=== PATIENT | male | born 2000 | race Caucasian/White ===

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

== ENCOUNTER 2021-10-28 09:12 | Emergency (ER) | payer OTHER, SELFPAY ==
[2021-10-28] VITALS (9 sets, daily range): BP systolic 106–154; BP diastolic 58–94; PULSE 73–102; RESP 14–19; TEMP 36.9; O2SAT 98–100; BMI 32.1
--- NOTE | 2021-10-28 09:23 | DI.US.S_ITS ---
PROCEDURE: US ABDOMEN LIMITED INDICATIONS: RUQ PAIN TECHNIQUE: Real-time scanning was performed of the abdominal and retroperitoneal organs, with image documentation. COMPARISON: None. FINDINGS: Liver: Liver is normal in size and homogeneous in echotexture. Gallbladder: Gallbladder is normal in sonographic appearance without gallstones, gallbladder wall thickening, pericholecystic fluid, or abnormal sonographic Hernandez's. Biliary ducts: Intrahepatic bile ducts are non-dilated. Extrahepatic bile duct caliber measures 6 mm. Normal is 6-7 mm or less in diameter, or 10 mm or less post-cholecystectomy. Pancreas: Visualized portions of the pancreas are sonographically normal. Miscellaneous: No free abdominal fluid. IMPRESSION: Normal right upper quadrant abdominal ultrasound. No acute sonographic abnormalities. No evidence for cholelithiasis or acute cholecystitis. Dictated by: Bruno Good M.D. on 10/28/2021 at 11:25 Approved by: Bruno Good M.D. on 10/28/2021 at 11:26
--- NOTE | 2021-10-28 09:24 | ED.ABDPAIN ---
HPI - Abdominal Pain General Chief Complaint: Abdominal Pain Stated Complaint: Yellowing of eyes/n&v/mid abd pain x4 days Time Seen by Provider: 10/28/21 09:23 History of Present Illness HPI narrative: Patient is a 21-year-old male with no past medical history presenting with epigastric pain. He says it started about 5 days ago. He has had some nausea 1 or 2 episodes of vomiting pain comes and goes but does not have any pain now. He has not had any fever or chills. Pain does not radiate or move. He denies any chest pain or shortness of breath. He states that he does binge drink he can go numerous speaks with out anything half and then drinks hard liquor for about 1 week. He said he recently was on a binge. He says takes 5 oz and then goes to bed. He started noticing some yellowing of the eyes over the last few days. No abdominal distension Related Data Home Medications Medication Instructions Recorded Confirmed No Known Home Medications 10/28/21 10/28/21 Allergies Allergy/AdvReac Type Severity Reaction Status Date / Time No Known Drug Allergies Allergy Verified 10/28/21 09:22 Review of Systems Review of Systems Narrative: GENERAL: Denies chills, fatigue, malaise, fever, sweats, travel HEENT: Denies sinus pain, ear pain, sore throat, difficulty swallowing, neck pain RESPIRATORY: Denies dyspnea, cough, wheezing, hemoptysis, sputum. CARDIOVASCULAR: Denies chest pain, palpitations, orthopnea, edema GASTROINTESTINAL: see HPI : Denies dysuria, frequency, incontinence, hematuria, urinary retention, flank pain. MUSCULOSKELETAL: Denies weakness, joint pain, or bony pain SKIN: No rash, no erythema, no pruritus NEUROLOGIC: Denies weakness, dizziness, headache, numbness, change in speech, confusion PSYCHIATRIC: No concerning psychosocial issues. 12 point review of systems is negative except for those stated above and HPI Patient History Alcohol type: hard liquor Exam Initial Vital Signs Initial Vital Signs: Vital Signs Temperature 98.5 F 10/28/21 09:18 Pulse Rate 102 H 10/28/21 09:18 Respiratory Rate 14 10/28/21 09:18 Blood Pressure 154/94 H 10/28/21 09:18 Pulse Oximetry 100 10/28/21 09:18 GENERAL: Alert 21-year-old male and in no acute distress. HEENT: Head atraumatic,EOMI, pupils reactive, very mild icterus, face symmetric, moist mucous membranes CARDIOVASCULAR: Regular rate and rhythm without murmurs, rubs or gallops. RESPIRATORY: Breath sounds equal bilaterally, no wheezes rales or rhonchi. ABDOMEN: Soft, nontender. Normoactive bowel sounds all 4 quadrants. No guarding or rebound. : No CVA tenderness EXTREMITIES: Normal range of motion, no clubbing or edema. Neurovascularly intact NEUROLOGICAL: Alert and oriented x4. SKIN: Warm, dry, no laceration, no petechiae, no rashes or lesions. Minimal jaundice Course Orders Ordered: ED Orders 10/28/21 09:23 US abdomen limited Stat 10/28/21 09:30 Complete Blood Count AUTO DIFF Stat Comprehensive Metabolic Panel Stat Lipase Stat PT [Prothrombin Time INR] Stat PTT [Partial Thromboplastin Time] Stat Vital Signs Vital signs: Vital Signs - 8 hr 10/28/21 11:00 10/28/21 11:30 10/28/21 12:00 Pulse Rate 77 73 78 Respiratory Rate 18 17 16 Blood Pressure 106/58 L 114/66 115/60 Pulse Oximetry 100 98 99 MDM - Abdominal Pain Lab Data Result diagrams: 10/28/21 09:30 10/28/21 09:30 Labs: Lab Results 10/28/21 10/28/21 10/28/21 Range/Units 09:30 09:30 09:30 WBC 4.2 L (4.5-11.0) X10^3/uL RBC 5.48 (4.5-5.9) X10^6/uL Hgb 16.3 (13.5-17.5) g/dL Hct 47.6 (41-53) % MCV 86.8 (80-100) fL MCH 29.8 (26-34) PG MCHC 34.3 (30-36) % RDW 13.5 (11.6-14.8) % Plt Count 194 (150-400) X10^3/uL Neut % (Auto) 63.8 (50-75) % Lymph % (Auto) 24.5 L (25-40) % [place] % (Auto) 9.4 (3-14) % Eos % (Auto) 1.8 L (2-4) % Baso % (Auto) 0.5 (0-2) % Neut # (Auto) 2700 (7123-4207) /uL Lymph # (Auto) 1000 L (8403-8589) /uL [place] # (Auto) 400 (0-900) /uL Eos # (Auto) 100 (0-450) /uL Baso # (Auto) 0 (0-100) /uL PT 12.2 (10.1-12.7) SECONDS INR 1.1 (0.9-1.3) APTT 38 H (26.4-36.2) SECONDS Sodium 140 (137-145) mmol/L Potassium 3.8 (3.4-5.1) mmol/L Chloride 102 (98-107) mmol/L Carbon Dioxide 28 (22-32) mmol/L BUN 8 L (9-20) mg/dL Creatinine 0.84 (0.66-1.25) mg/dL Estimated GFR > 60.0 (>60) mL/min BUN/Creatinine Ratio 9.5 (6-22) Glucose 101 H (70-100) mg/dL Calcium 9.9 (8.4-10.2) mg/dL Total Bilirubin 5.9 H (0.2-1.3) mg/dL AST 150 H (17-59) IU/L ALT 426 H (<50) IU/L Alkaline Phosphatase 168 H (38-126) U/L Total Protein 8.6 H (6.3-8.2) g/dL Albumin 5.2 H (3.5-5.0) g/dL Globulin 3.4 (1.7-4.1) g/dL Albumin/Globulin Ratio 1.5 (1.0-2.8) Lipase 104 (23-300) U/L Point of care testing: Urine Dip Bedside Urine Glucose Negative Bedside Urine Bilirubin - Negative Bedside Urine Ketone - Negative Urine Specific [place] 1.005 Bedside Urine Occult Blood - Negative Bedside Urine pH 6.0 Bedside Urine Protein - Negative Bedside Urine Urobilinogen - Negative Bedside Urine Nitrite - Negative Bedside Urine Leukocytes - Negative Esterase Imaging Data US - abdomen: Radiologist's Impression: PROCEDURE:? US ABDOMEN LIMITED ? INDICATIONS:? RUQ PAIN ? TECHNIQUE:? Real-time scanning was performed of the abdominal and retroperitoneal organs, with image documentation.? ? COMPARISON:? None. ? FINDINGS:? ? Liver:? Liver is normal in size and homogeneous in echotexture.? ? Gallbladder:? Gallbladder is normal in sonographic appearance without gallstones, gallbladder wall thickening, pericholecystic fluid, or abnormal sonographic Hernandez's.? ? Biliary ducts:? Intrahepatic bile ducts are non-dilated.? Extrahepatic bile duct caliber measures 6 mm.? Normal is 6-7 mm or less in diameter, or 10 mm or less post-cholecystectomy.? ? Pancreas:? Visualized portions of the pancreas are sonographically normal.? ? Miscellaneous:? No free abdominal fluid.? ? IMPRESSION:? Normal right upper quadrant abdominal ultrasound.? No acute sonographic abnormalities.? No evidence for cholelithiasis or acute cholecystitis. ? Dictated by: Bruno Good M.D. on 10/28/2021 at 11:25 ? [facility] Narrative Medical decision making narrative: At this time patient has no right upper quadrant pain not nauseated or vomiting. Found have elevated liver enzymes and bilirubin. Ultrasound is negative. This is likely secondary to alcohol abuse. I had a paresh conversation with the patient about quitting alcohol. It sounds as though he does go through binges he has never had seizures or tremors. We discussed how to taper alcohol slowly and about detox options. We also discussed risk of stopping alcohol abruptly and risk of . MELD Score (Model For End-Stage Liver Disease) (12 and older) from [employer] on 10/28/2021 All calculations should be rechecked by clinician prior to use RESULT SUMMARY: 14 points MELD Score (2016)* 6.0% Estimated 3-Month Mortality INPUTS: Dialysis at least twice in the past week ?> 0 = No Creatinine ?> 0.84 mg/dL Bilirubin ?> 5.9 mg/dL INR ?> 1.1 Sodium ?> 140 mEq/L Discharge Plan Departure Patient Disposition: Home Clinical Impression: Alcohol abuse, Alcoholic liver failure Instructions: Delirium Tremens, Alcohol Use Disorder Activity Restrictions/Additional Instructions: *You have been diagnosed with alcoholic liver failure *What to do: At this time you must stop drinking. I do recommend that you decrease slowly so that you do not have withdrawal. You may need to go to the detox center. Please feel free to call these on your own *Continue to take medications as directed Avoid Tylenol/acetaminophen May take ibuprofen 600 mg every 8 hours if needed for [id number] pain *Follow up with your primary care provider in 2-3 days or call [phone] *Return to ER if you should have increasing pain nausea vomiting fever abdominal distension, shaking, seizures or any new, worsening or concerning symptoms Prescriptions: No Action No Known Home Medications 0RF Referrals: [facility] [Outside] [facility] [Outside] Miscellaneous,Doctor, [Non-Staff] -
[2021-10-28 09:40] LABS: Add Manual Diff / Slide Review NO; Basophils Absolute Auto 0 /uL (0-100); Basophils Percent Auto 0.5 % (0-2); Eosinophils Absolute Auto 100 /uL (0-450); Eosinophils Percent Auto 1.8 % (2-4); Hematocrit 47.6 % (41-53); Hemoglobin 16.3 g/dL (13.5-17.5); Lymphocytes Absolute Auto 1000 /uL (1100-4500); Lymphocytes Percent Auto 24.5 % (25-40); Mean Corpuscular HGB Conc 34.3 % (30-36); Mean Corpuscular Hemoglobin 29.8 PG (26-34); Mean Corpuscular Volume 86.8 fL (80-100); Monocytes Absolute Auto 400 /uL (0-900); Monocytes Percent Auto 9.4 % (3-14); Neutrophils Absolute Auto 2700 /uL (1500-7000); Neutrophils Percent Auto 63.8 % (50-75); Platelet Count 194 X10^3/uL (150-400); Red Blood Cell Count 5.48 X10^6/uL (4.5-5.9); Red Cell Distribution Width 13.5 % (11.6-14.8); White Blood Cell Count 4.2 X10^3/uL (4.5-11.0)
[2021-10-28 09:49] LABS: INR 1.1 (0.9-1.3); Prothrombin Time 12.2 SECONDS (10.1-12.7)
[2021-10-28 09:52] LABS: PTT Partial Thromboplastin Tim 38 SECONDS (26.4-36.2)
[2021-10-28 10:00] LABS: Alanine Aminotransferase 426 IU/L (<50); Albumin 5.2 g/dL (3.5-5.0); Albumin Globulin Ratio 1.5 (1.0-2.8); Alkaline Phosphatase 168 U/L (38-126); Aspartate Aminotransferase 150 IU/L (17-59); BUN Creatinine Ratio 9.5 (6-22); Bilirubin Total 5.9 mg/dL (0.2-1.3); Blood Urea Nitrogen 8 mg/dL (9-20); Calcium 9.9 mg/dL (8.4-10.2); Carbon Dioxide 28 mmol/L (22-32); Chloride 102 mmol/L (98-107); Estimated Glomerular Filt Rate > 60.0 mL/min (>60); Globulin 3.4 g/dL (1.7-4.1); Glucose 101 mg/dL (70-100); HEMOLYSIS < 15 (0-50); Lipase 104 U/L (23-300); Potassium 3.8 mmol/L (3.4-5.1); Sodium 140 mmol/L (137-145); Total Protein 8.6 g/dL (6.3-8.2)
--- NOTE | 2021-10-28 10:04 | PC.NURSE ---
Currently not experiencing nausea or vomiting, however had emesis x 1 yesterday. Denies blood in emesis.
== END 2021-10-28 12:13 | disposition home or self-care (01) ==
PROVIDERS: Emergency Provider Emergency Medicine
DX: K70.40 Alcoholic hepatic failure without coma (principal); F10.10 Alcohol abuse, uncomplicated
CPT/HCPCS: 36415; 76705; 80053; 81003; 83690; 85025; 85610; 85730; 99284

== ENCOUNTER 2021-10-31 06:25 | Inpatient (IN) | payer OTHER, SELFPAY ==
[2021-10-31] VITALS (23 sets, daily range): BP systolic 103–132; BP diastolic 54–80; PULSE 71–107; RESP 15–24; TEMP 36.9–37.3; O2SAT 98–100; BMI 31.5
--- NOTE | 2021-10-31 06:42 | ED_ITS ---
HPI - Abdominal Pain <Kayode Wilson DO - Last Filed: 11/01/21 04:47> General Chief Complaint: Abdominal Pain Stated Complaint: shaking and bad pain Time Seen by Provider: 10/31/21 06:27 History of Present Illness HPI narrative: 21M nonsmoker with extensive history of bingeing alcohol abuse presents for the 2nd time this week. He states that you alternate between weeks of no drinking and other weeks he will drink upwards of a 0.5 gal over 5-7 days. he has never gone through withdrawals in the past and states he has never tried quitting. He was seen and evaluated a few days ago and had a very thorough evaluation and was discharged with a diagnosis of alcoholic hepatitis and encouraged to return for worsening symptoms. Patient had been doing well for the past few days but over the past 24 hours or so he states he has had increasing epigastric pain without obvious provocation, palliation or radiation. He denies any nausea or vomiting and states he has been eating without difficulty. He does admit that he is becoming jaundiced again, though not as much as over the weekend. He states that his skin is a bit itchy but he is otherwise well and free of complaint. He denies any headache or blurred vision. He has no auditory, visual or tactile hallucinations. He denies any unexplained diaphoresis. Related Data Home Medications Medication Instructions Recorded Confirmed No Known Home Medications 10/28/21 10/28/21 Allergies Allergy/AdvReac Type Severity Reaction Status Date / Time No Known Drug Allergies Allergy Verified 10/28/21 09:22 Review of Systems <Kayode Wilson DO - Last Filed: 11/01/21 04:47> Review of Systems Narrative: GENERAL: Denies chills, fatigue, malaise, fever, sweats. HEENT: Denies sinus pain, ear pain, sore throat, difficulty swallowing, dizziness. RESPIRATORY: Denies dyspnea, cough, wheezing, hemoptysis, sputum. CARDIOVASCULAR: Denies chest pain, palpitations, orthopnea, edema, GASTROINTESTINAL: see HPI : Denies dysuria, frequency, incontinence, hematuria, urinary retention. MUSCULOSKELETAL: denies weakness, joint pain, or bony pain SKIN: see HPI NEUROLOGIC: Denies weakness, headache, numbness, change in speech, confusion, seizures, incoordination. PSYCHIATRIC: No concerning psychosocial issues. 12 point review of systems is negative except for those stated above Patient History <Kayode Wilson DO - Last Filed: 11/01/21 04:47> Medical History No significant medical problems Surgical History No significant past surgical history Social History household members: family Smoking Status: Former smoker alcohol intake: former tobacco type: smokeless tobacco alcohol intake frequency: 3 or more drinks per day Alcohol type: hard liquor Substance Use Type: does not use Exam <Kayode Wilson DO - Last Filed: 11/01/21 04:47> Narrative Exam Narrative: GENERAL: [21] year old patient appears stated age. Well-developed patient, in mild distress. HEAD: Atraumatic. Normocephalic. EYES: Pupils equal round and reactive. Extraocular motions intact. scleral icterus. No injection or drainage. ENT: Nose without bleeding, purulent drainage. Throat without erythema, tonsillar hypertrophy or exudate. Airway patent. NECK: Trachea midline. Non tender CARDIOVASCULAR: Regular rate and rhythm without murmurs, gallops, or rubs. RESPIRATORY: Clear to auscultation. Breath sounds equal bilaterally. No wheezes, rales, or rhonchi. GASTROINTESTINAL: Abdomen soft, non-tender, nondistended. EXTREMITIES: No edema or joint tenderness. BACK: Nontender without deformity or crepitance. No flank tenderness. NEURO: AOx3. SKIN: JaundiceNo rash or erythema of visible areas Initial Vital Signs Initial Vital Signs: Vital Signs Temperature 98.7 F 10/31/21 06:40 Pulse Rate 105 H 10/31/21 06:40 Respiratory Rate 15 10/31/21 06:40 Blood Pressure 122/76 10/31/21 06:40 Pulse Oximetry 100 10/31/21 06:40 <Emma Jacobs DO - Last Filed: 10/31/21 18:41> Initial Vital Signs Initial Vital Signs: Vital Signs Temperature 98.7 F 10/31/21 06:40 Pulse Rate 105 H 10/31/21 06:40 Respiratory Rate 15 10/31/21 06:40 Blood Pressure 122/76 10/31/21 06:40 Pulse Oximetry 100 10/31/21 06:40 Course <Kayode Wilson DO - Last Filed: 11/01/21 04:47> Orders Ordered: Hydromorphone HCl (Hydromorphone 1 Mg Inj) 1 mg IV Q4H PRN PRN Reason: Pain, Moderate (4-6) Last Admin: 11/01/21 03:09 Dose: 1 mg Documented by: KIERRA Sodium Chloride (Normal Saline 0.9%) 1,000 mls @ 150 mls/hr IV CONT MICHELLE Last Admin: 11/01/21 03:13 Dose: 150 mls/hr Documented by: Infusion: 11/01/21 01:12 Dose: 150 mls/hr Documented by: Admin: 10/31/21 18:31 Dose: 150 mls/hr Documented by: Infusion: 10/31/21 13:56 Dose: 0 mls/hr Documented by: Admin: 10/31/21 06:54 Dose: 150 mls/hr Documented by: ALEXANDRIA Naloxone HCl (Naloxone 0.4 Mg/Ml Vial) 0.2 mg IV Q2MIN PRN PRN Reason: Opiate Reversal Discontinued Medications Sodium Chloride (Normal Saline 0.9%) 1,000 mls @ 1,000 mls/hr IV BOLUS ONE Stop: 10/31/21 09:28 Last Infusion: 10/31/21 11:39 Dose: 0 mls/hr Documented by: Admin: 10/31/21 09:25 Dose: 1,000 mls/hr Documented by: ALEXA Ketorolac Tromethamine (Ketorolac 30 Mg/Ml Vial) 15 mg IV NOW ONE Stop: 10/31/21 07:48 Last Admin: 10/31/21 08:23 Dose: 15 mg Documented by: ALEXA Morphine Sulfate (Morphine 4 Mg/Ml Inj) 4 mg IV NOW ONE Stop: 10/31/21 09:50 Last Admin: 10/31/21 10:12 Dose: 4 mg Documented by: ALEXA Vital Signs Vital signs: Vital Signs - 8 hr 10/31/21 10:50 10/31/21 10:56 10/31/21 11:00 Pulse Rate 107 H 90 93 H Blood Pressure 119/66 123/66 Pulse Oximetry 99 99 98 10/31/21 11:30 10/31/21 12:00 Pulse Rate 88 75 Blood Pressure 116/66 120/64 Pulse Oximetry 99 99 <Emma Jacobs DO - Last Filed: 10/31/21 18:41> Orders Ordered: Hydromorphone HCl (Hydromorphone 1 Mg Inj) 1 mg IV Q4H PRN PRN Reason: Pain, Moderate (4-6) Last Admin: 11/01/21 03:09 Dose: 1 mg Documented by: KIERRA Sodium Chloride (Normal Saline 0.9%) 1,000 mls @ 150 mls/hr IV CONT MICHELLE Last Admin: 11/01/21 03:13 Dose: 150 mls/hr Documented by: Infusion: 11/01/21 01:12 Dose: 150 mls/hr Documented by: Admin: 10/31/21 18:31 Dose: 150 mls/hr Documented by: Infusion: 10/31/21 13:56 Dose: 0 mls/hr Documented by: Admin: 10/31/21 06:54 Dose: 150 mls/hr Documented by: ALEXANDRIA Naloxone HCl (Naloxone 0.4 Mg/Ml Vial) 0.2 mg IV Q2MIN PRN PRN Reason: Opiate Reversal Discontinued Medications Sodium Chloride (Normal Saline 0.9%) 1,000 mls @ 1,000 mls/hr IV BOLUS ONE Stop: 10/31/21 09:28 Last Infusion: 10/31/21 11:39 Dose: 0 mls/hr Documented by: Admin: 10/31/21 09:25 Dose: 1,000 mls/hr Documented by: ALEXA Ketorolac Tromethamine (Ketorolac 30 Mg/Ml Vial) 15 mg IV NOW ONE Stop: 10/31/21 07:48 Last Admin: 10/31/21 08:23 Dose: 15 mg Documented by: ALEXA Morphine Sulfate (Morphine 4 Mg/Ml Inj) 4 mg IV NOW ONE Stop: 10/31/21 09:50 Last Admin: 10/31/21 10:12 Dose: 4 mg Documented by: ALEXA Vital Signs Vital signs: Vital Signs - 8 hr 10/31/21 10:50 10/31/21 10:56 10/31/21 11:00 Pulse Rate 107 H 90 93 H Blood Pressure 119/66 123/66 Pulse Oximetry 99 99 98 10/31/21 11:30 10/31/21 12:00 Pulse Rate 88 75 Blood Pressure 116/66 120/64 Pulse Oximetry 99 99 MDM - Abdominal Pain <Kayode Wilson DO - Last Filed: 11/01/21 04:47> Lab Data Result diagrams: 10/31/21 06:55 10/31/21 06:55 Labs: Lab Results 10/31/21 10/31/21 10/31/21 Range/Units 06:55 06:55 06:55 WBC 7.2 (4.5-11.0) X10^3/uL RBC 5.16 (4.5-5.9) X10^6/uL Hgb 15.5 (13.5-17.5) g/dL Hct 45.4 (41-53) % MCV 87.9 (80-100) fL MCH 30.1 (26-34) PG MCHC 34.2 (30-36) % RDW 13.6 (11.6-14.8) % Plt Count 184 (150-400) X10^3/uL Neut % (Auto) 83.8 H (50-75) % Lymph % (Auto) 8.0 L (25-40) % [place] % (Auto) 7.5 (3-14) % Eos % (Auto) 0.6 L (2-4) % Baso % (Auto) 0.1 (0-2) % Neut # (Auto) 6000 (7297-6810) /uL Lymph # (Auto) 600 L (4671-3594) /uL [place] # (Auto) 500 (0-900) /uL Eos # (Auto) 0 (0-450) /uL Baso # (Auto) 0 (0-100) /uL PT 12.2 (10.1-12.7) SECONDS INR 1.1 (0.9-1.3) APTT (26.4-36.2) SECONDS Sodium 139 (137-145) mmol/L Potassium 3.9 (3.4-5.1) mmol/L Chloride 102 (98-107) mmol/L Carbon Dioxide 28 (22-32) mmol/L BUN 11 (9-20) mg/dL Creatinine 0.84 (0.66-1.25) mg/dL Estimated GFR > 60.0 (>60) mL/min BUN/Creatinine Ratio 13.1 (6-22) Glucose 118 H (70-100) mg/dL Calcium 9.6 (8.4-10.2) mg/dL Total Bilirubin 7.5 H (0.2-1.3) mg/dL AST 147 H (17-59) IU/L ALT 310 H (<50) IU/L Alkaline Phosphatase 185 H (38-126) U/L Total Protein 8.1 (6.3-8.2) g/dL Albumin 4.7 (3.5-5.0) g/dL Globulin 3.4 (1.7-4.1) g/dL Albumin/Globulin Ratio 1.4 (1.0-2.8) Triglycerides (35-150) mg/dL Lipase 01257 H D (23-300) U/L Ur Bilirubin Confirm (Negative) Urine RBC (0-5/HPF) Urine WBC (0-5/HPF) Ur Squamous Epith Cells (0-5/HPF) Urine Bacteria (None) Urine Mucus (Negative) Ur Culture Indicated? Acetaminophen < 10 L (10-30) ug/mL Ethyl Alcohol < 10 ( - 10) mg/dL SARS-CoV-2 (PCR) (Negative) Hepatitis A IgM Ab (Negative) Hep Bs Antigen (Negative) Hep B Core IgM Ab (Negative) Hepatitis C Antibody (0.0-0.9) s/co ratio Hep C Ab Signal/Cutoff (.) 10/31/21 10/31/21 10/31/21 Range/Units 06:55 06:55 06:55 WBC (4.5-11.0) X10^3/uL RBC (4.5-5.9) X10^6/uL Hgb (13.5-17.5) g/dL Hct (41-53) % MCV (80-100) fL MCH (26-34) PG MCHC (30-36) % RDW (11.6-14.8) % Plt Count (150-400) X10^3/uL Neut % (Auto) (50-75) % Lymph % (Auto) (25-40) % [place] % (Auto) (3-14) % Eos % (Auto) (2-4) % Baso % (Auto) (0-2) % Neut # (Auto) (7417-0773) /uL Lymph # (Auto) (8820-8041) /uL [place] # (Auto) (0-900) /uL Eos # (Auto) (0-450) /uL Baso # (Auto) (0-100) /uL PT (10.1-12.7) SECONDS INR (0.9-1.3) APTT 38 H (26.4-36.2) SECONDS Sodium (137-145) mmol/L Potassium (3.4-5.1) mmol/L Chloride (98-107) mmol/L Carbon Dioxide (22-32) mmol/L BUN (9-20) mg/dL Creatinine (0.66-1.25) mg/dL Estimated GFR (>60) mL/min BUN/Creatinine Ratio (6-22) Glucose (70-100) mg/dL Calcium (8.4-10.2) mg/dL Total Bilirubin (0.2-1.3) mg/dL AST (17-59) IU/L ALT (<50) IU/L Alkaline Phosphatase (38-126) U/L Total Protein (6.3-8.2) g/dL Albumin (3.5-5.0) g/dL Globulin (1.7-4.1) g/dL Albumin/Globulin Ratio (1.0-2.8) Triglycerides 102 (35-150) mg/dL Lipase (23-300) U/L Ur Bilirubin Confirm (Negative) Urine RBC (0-5/HPF) Urine WBC (0-5/HPF) Ur Squamous Epith Cells (0-5/HPF) Urine Bacteria (None) Urine Mucus (Negative) Ur Culture Indicated? Acetaminophen (10-30) ug/mL Ethyl Alcohol ( - 10) mg/dL SARS-CoV-2 (PCR) (Negative) Hepatitis A IgM Ab Negative (Negative) Hep Bs Antigen Negative (Negative) Hep B Core IgM Ab Negative (Negative) Hepatitis C Antibody <0.1 (0.0-0.9) s/co ratio Hep C Ab Signal/Cutoff Comment (.) 10/31/21 10/31/21 Range/Units 09:00 11:14 WBC (4.5-11.0) X10^3/uL RBC (4.5-5.9) X10^6/uL Hgb (13.5-17.5) g/dL Hct (41-53) % MCV (80-100) fL MCH (26-34) PG MCHC (30-36) % RDW (11.6-14.8) % Plt Count (150-400) X10^3/uL Neut % (Auto) (50-75) % Lymph % (Auto) (25-40) % [place] % (Auto) (3-14) % Eos % (Auto) (2-4) % Baso % (Auto) (0-2) % Neut # (Auto) (7797-3270) /uL Lymph # (Auto) (1270-9610) /uL [place] # (Auto) (0-900) /uL Eos # (Auto) (0-450) /uL Baso # (Auto) (0-100) /uL PT (10.1-12.7) SECONDS INR (0.9-1.3) APTT (26.4-36.2) SECONDS Sodium (137-145) mmol/L Potassium (3.4-5.1) mmol/L Chloride (98-107) mmol/L Carbon Dioxide (22-32) mmol/L BUN (9-20) mg/dL Creatinine (0.66-1.25) mg/dL Estimated GFR (>60) mL/min BUN/Creatinine Ratio (6-22) Glucose (70-100) mg/dL Calcium (8.4-10.2) mg/dL Total Bilirubin (0.2-1.3) mg/dL AST (17-59) IU/L ALT (<50) IU/L Alkaline Phosphatase (38-126) U/L Total Protein (6.3-8.2) g/dL Albumin (3.5-5.0) g/dL Globulin (1.7-4.1) g/dL Albumin/Globulin Ratio (1.0-2.8) Triglycerides (35-150) mg/dL Lipase (23-300) U/L Ur Bilirubin Confirm Positive H (Negative) Urine RBC None seen (0-5/HPF) Urine WBC 0-1/hpf (0-5/HPF) Ur Squamous Epith Cells None seen (0-5/HPF) Urine Bacteria None seen (None) Urine Mucus 1+ H (Negative) Ur Culture Indicated? Cult not indicated Acetaminophen (10-30) ug/mL Ethyl Alcohol ( - 10) mg/dL SARS-CoV-2 (PCR) Negative (Negative) Hepatitis A IgM Ab (Negative) Hep Bs Antigen (Negative) Hep B Core IgM Ab (Negative) Hepatitis C Antibody (0.0-0.9) s/co ratio Hep C Ab Signal/Cutoff (.) Point of care testing: Urine Dip Bedside Urine Glucose Negative Bedside Urine Bilirubin ++ 2 Bedside Urine Ketone +/- 5 Urine Specific [place] 1.025 Bedside Urine Occult Blood - Negative Bedside Urine pH 6 Bedside Urine Protein +/- 15 Bedside Urine Urobilinogen - Negative Bedside Urine Nitrite - Negative Bedside Urine Leukocytes +/- 15 Esterase MDM Narrative Medical decision making narrative: patient signed out to Dr. Jacobs for the completion of the workup and di sposition <Emma Jacobs, - Last Filed: 10/31/21 18:41> Lab Data Labs: Lab Results 10/31/21 10/31/21 10/31/21 Range/Units 06:55 06:55 06:55 WBC 7.2 (4.5-11.0) X10^3/uL RBC 5.16 (4.5-5.9) X10^6/uL Hgb 15.5 (13.5-17.5) g/dL Hct 45.4 (41-53) % MCV 87.9 (80-100) fL MCH 30.1 (26-34) PG MCHC 34.2 (30-36) % RDW 13.6 (11.6-14.8) % Plt Count 184 (150-400) X10^3/uL Neut % (Auto) 83.8 H (50-75) % Lymph % (Auto) 8.0 L (25-40) % [place] % (Auto) 7.5 (3-14) % Eos % (Auto) 0.6 L (2-4) % Baso % (Auto) 0.1 (0-2) % Neut # (Auto) 6000 (2267-3403) /uL Lymph # (Auto) 600 L (9580-1441) /uL [place] # (Auto) 500 (0-900) /uL Eos # (Auto) 0 (0-450) /uL Baso # (Auto) 0 (0-100) /uL PT 12.2 (10.1-12.7) SECONDS INR 1.1 (0.9-1.3) APTT (26.4-36.2) SECONDS Sodium 139 (137-145) mmol/L Potassium 3.9 (3.4-5.1) mmol/L Chloride 102 (98-107) mmol/L Carbon Dioxide 28 (22-32) mmol/L BUN 11 (9-20) mg/dL Creatinine 0.84 (0.66-1.25) mg/dL Estimated GFR > 60.0 (>60) mL/min BUN/Creatinine Ratio 13.1 (6-22) Glucose 118 H (70-100) mg/dL Calcium 9.6 (8.4-10.2) mg/dL Total Bilirubin 7.5 H (0.2-1.3) mg/dL AST 147 H (17-59) IU/L ALT 310 H (<50) IU/L Alkaline Phosphatase 185 H (38-126) U/L Total Protein 8.1 (6.3-8.2) g/dL Albumin 4.7 (3.5-5.0) g/dL Globulin 3.4 (1.7-4.1) g/dL Albumin/Globulin Ratio 1.4 (1.0-2.8) Triglycerides (35-150) mg/dL Lipase 76954 H D (23-300) U/L Ur Bilirubin Confirm (Negative) Urine RBC (0-5/HPF) Urine WBC (0-5/HPF) Ur Squamous Epith Cells (0-5/HPF) Urine Bacteria (None) Urine Mucus (Negative) Ur Culture Indicated? Acetaminophen < 10 L (10-30) ug/mL Ethyl Alcohol < 10 ( - 10) mg/dL SARS-CoV-2 (PCR) (Negative) Hepatitis A IgM Ab (Negative) Hep Bs Antigen (Negative) Hep B Core IgM Ab (Negative) Hepatitis C Antibody (0.0-0.9) s/co ratio Hep C Ab Signal/Cutoff (.) 10/31/21 10/31/21 10/31/21 Range/Units 06:55 06:55 06:55 WBC (4.5-11.0) X10^3/uL RBC (4.5-5.9) X10^6/uL Hgb (13.5-17.5) g/dL Hct (41-53) % MCV (80-100) fL MCH (26-34) PG MCHC (30-36) % RDW (11.6-14.8) % Plt Count (150-400) X10^3/uL Neut % (Auto) (50-75) % Lymph % (Auto) (25-40) % [place] % (Auto) (3-14) % Eos % (Auto) (2-4) % Baso % (Auto) (0-2) % Neut # (Auto) (1596-6355) /uL Lymph # (Auto) (4167-7782) /uL [place] # (Auto) (0-900) /uL Eos # (Auto) (0-450) /uL Baso # (Auto) (0-100) /uL PT (10.1-12.7) SECONDS INR (0.9-1.3) APTT 38 H (26.4-36.2) SECONDS Sodium (137-145) mmol/L Potassium (3.4-5.1) mmol/L Chloride (98-107) mmol/L Carbon Dioxide (22-32) mmol/L BUN (9-20) mg/dL Creatinine (0.66-1.25) mg/dL Estimated GFR (>60) mL/min BUN/Creatinine Ratio (6-22) Glucose (70-100) mg/dL Calcium (8.4-10.2) mg/dL Total Bilirubin (0.2-1.3) mg/dL AST (17-59) IU/L ALT (<50) IU/L Alkaline Phosphatase (38-126) U/L Total Protein (6.3-8.2) g/dL Albumin (3.5-5.0) g/dL Globulin (1.7-4.1) g/dL Albumin/Globulin Ratio (1.0-2.8) Triglycerides 102 (35-150) mg/dL Lipase (23-300) U/L Ur Bilirubin Confirm (Negative) Urine RBC (0-5/HPF) Urine WBC (0-5/HPF) Ur Squamous Epith Cells (0-5/HPF) Urine Bacteria (None) Urine Mucus (Negative) Ur Culture Indicated? Acetaminophen (10-30) ug/mL Ethyl Alcohol ( - 10) mg/dL SARS-CoV-2 (PCR) (Negative) Hepatitis A IgM Ab Negative (Negative) Hep Bs Antigen Negative (Negative) Hep B Core IgM Ab Negative (Negative) Hepatitis C Antibody <0.1 (0.0-0.9) s/co ratio Hep C Ab Signal/Cutoff Comment (.) 10/31/21 10/31/21 Range/Units 09:00 11:14 WBC (4.5-11.0) X10^3/uL RBC (4.5-5.9) X10^6/uL Hgb (13.5-17.5) g/dL Hct (41-53) % MCV (80-100) fL MCH (26-34) PG MCHC (30-36) % RDW (11.6-14.8) % Plt Count (150-400) X10^3/uL Neut % (Auto) (50-75) % Lymph % (Auto) (25-40) % [place] % (Auto) (3-14) % Eos % (Auto) (2-4) % Baso % (Auto) (0-2) % Neut # (Auto) (1472-2918) /uL Lymph # (Auto) (2202-5334) /uL [place] # (Auto) (0-900) /uL Eos # (Auto) (0-450) /uL Baso # (Auto) (0-100) /uL PT (10.1-12.7) SECONDS INR (0.9-1.3) APTT (26.4-36.2) SECONDS Sodium (137-145) mmol/L Potassium (3.4-5.1) mmol/L Chloride (98-107) mmol/L Carbon Dioxide (22-32) mmol/L BUN (9-20) mg/dL Creatinine (0.66-1.25) mg/dL Estimated GFR (>60) mL/min BUN/Creatinine Ratio (6-22) Glucose (70-100) mg/dL Calcium (8.4-10.2) mg/dL Total Bilirubin (0.2-1.3) mg/dL AST (17-59) IU/L ALT (<50) IU/L Alkaline Phosphatase (38-126) U/L Total Protein (6.3-8.2) g/dL Albumin (3.5-5.0) g/dL Globulin (1.7-4.1) g/dL Albumin/Globulin Ratio (1.0-2.8) Triglycerides (35-150) mg/dL Lipase (23-300) U/L Ur Bilirubin Confirm Positive H (Negative) Urine RBC None seen (0-5/HPF) Urine WBC 0-1/hpf (0-5/HPF) Ur Squamous Epith Cells None seen (0-5/HPF) Urine Bacteria None seen (None) Urine Mucus 1+ H (Negative) Ur Culture Indicated? Cult not indicated Acetaminophen (10-30) ug/mL Ethyl Alcohol ( - 10) mg/dL SARS-CoV-2 (PCR) Negative (Negative) Hepatitis A IgM Ab (Negative) Hep Bs Antigen (Negative) Hep B Core IgM Ab (Negative) Hepatitis C Antibody (0.0-0.9) s/co ratio Hep C Ab Signal/Cutoff (.) Point of care testing: Urine Dip Bedside Urine Glucose Negative Bedside Urine Bilirubin ++ 2 Bedside Urine Ketone +/- 5 Urine Specific [place] 1.025 Bedside Urine Occult Blood - Negative Bedside Urine pH 6 Bedside Urine Protein +/- 15 Bedside Urine Urobilinogen - Negative Bedside Urine Nitrite - Negative Bedside Urine Leukocytes +/- 15 Esterase Imaging Data US - abdomen: Radiologist's Impression: PROCEDURE:? US ABDOMEN LIMITED ? INDICATIONS:? ETOH; ELEVATED BILIRUBIN ? TECHNIQUE:? Real-time scanning was performed of the abdominal and retroperitoneal organs, with image documentation.? ? COMPARISON:? [facility], , US ABDOMEN LIMITED, 10/28/2021, 9:52. ? FINDINGS:? ? Liver:? Liver is normal in size and homogeneous in echotexture.? The portal vein appears patent ? Gallbladder:? Small amount of sludge in the dependent gallbladder.? No gall bladder wall thickening or pericholecystic fluid.? ? Biliary ducts:? Intrahepatic bile ducts are non-dilated.? Extrahepatic bile duct caliber measures measures up to 8.8 mm.? Normal is 6-7 mm or less in diameter, or 10 mm or less post-cholecystectomy.? ? Pancreas:? Visualized portions of the pancreas are sonographically normal.? ? Miscellaneous:? No free abdominal fluid.? ? IMPRESSION:? 1. Sludge within the gallbladder. 2. Dilatation of the CBD. ? Dictated by: Jori Odom M.D. on 10/31/2021 at 8:36 ? ? MRCP: Radiologist's Impression: PROCEDURE:? MR ABDOMEN WO CON ? INDICATIONS:? dilation of CBD, pancreatitis ? TECHNIQUE:? Coronal HASTE through the abdomen, axial 2-D FLASH in- and [id number], and breath-hold T2 FSE with fat saturation through the biliary system and pancreas.? Oblique coronal and axial thin-slice HASTE, radial thick-slab HASTE centered on the extrahepatic bile ducts.? ? ? COMPARISON:? [facility], , ABDOMEN LIMITED, 10/31/2021, 7:56. ? FINDINGS:? Image quality:? There is mild motion artifact.? ? Pancreas and biliary system:? The gallbladder is distended but demonstrates no discrete gallstones, wall thickening, or pericholecystic fluid.? There is intra and extrahepatic biliary ductal dilatation.? The common bile duct measures up to approximately 1.0 cm.? No discrete filling defects are identified within the common duct to suggest choledocholithiasis.? No definite obstructing mass identified at the ampulla or in the pancreatic head in the absence of intravenous contrast.? The pancreatic duct is nondistended.? There is mild peripancreatic edema and fluid predominantly along the pancreatic head consistent with acute pancreatitis.? No loculated peripancreatic fluid collections. ? Other solid organs:? Noncontrast evaluation of the liver demonstrates no discrete mass lesion.? Spleen is normal in size.? No adrenal nodules.? Both kidneys are normal in size, without hydronephrosis.? ? Nodes and vessels:? No retroperitoneal or mesenteric adenopathy by size criteria.? Aorta and inferior vena cava are normal in size.? ? Bowel and peritoneum:? Visualized bowel loops are normal in caliber.? No free fluid.? ? Lung bases:? No basal pleural effusions.? Heart size is normal.? ? Bones and soft tissues:? No ventral hernias.? Bone marrow is of normal overall signal.? ? IMPRESSION:? ? 1. Mild biliary ductal dilatation without evidence of choledocholithiasis or discrete obstructing mass in the absence of intravenous contrast.? The findings are nonspecific and the differential includes a recently passed stone, ampullary stenosis, or a nonvisualized small obstructing mass lesion.? Recommend correlation clinically and if there is persistent clinical suspicion for obstruction, a follow-up study with intravenous contrast may be performed for further evaluation. ? 2. Peripancreatic edema and fluid consistent with acute pancreatitis.? No loculated peripancreatic fluid collections.? No pancreatic duct dilatation.? ? ? Dictated by: Oseas Martin M.D. on 10/31/2021 at 11:47? [facility] Narrative Medical decision making narrative: patient signed out to Dr. Jacobs for the completion of the workup and disp osition I received sign-out from Dr. Wilson. I have seen evaluated patient myself. He has minimal pain, he continues to be jaundiced. He is found to have elevated bilirubin more so than previously it went From 5.9-7.5. Today he is also found to have elevated lipase of 22,000. Ultrasound does show a dilated common bile duct without stones. 2 days previous he had an ultrasound that was completely negative. [id number] Dr. Alicia Hawley has been updated patient symptoms and test results at this time recommend MRI to determine if patient has gallstone versus alcohol pancreatitis. No need to transfer at this time MRCP is negative. Possible recently passed gallstone is. Patient is given pain medications in appears comfortable. jackie Olivier accepts patient MELD Score (Model For End-Stage Liver Disease) (12 and older) from [employer] on 10/31/2021 All calculations should be rechecked by clinician prior to use RESULT SUMMARY: 15 points MELD Score (2016)* 6.0% Estimated 3-Month Mortality INPUTS: Dialysis at least twice in the past week ?> 0 = No Creatinine ?> 0.84 mg/dL Bilirubin ?> 7.5 mg/dL INR ?> 1.1 Sodium ?> 139 mEq/L Discharge Plan Departure Patient Disposition: Admitted As Inpatient Clinical Impression: Acute pancreatitis, Alcoholic liver failure Admit Date/Time: 10/31/21 12:23 Admit Provider: Eleazar Raymond
[2021-10-31] MEDS: SODIUM CHLORIDE 0.9% 1,000 ML 150 ML IV ×2 (06:54→18:31)
[2021-10-31 07:08] LABS: Add Manual Diff / Slide Review NO; Basophils Absolute Auto 0 /uL (0-100); Basophils Percent Auto 0.1 % (0-2); Eosinophils Absolute Auto 0 /uL (0-450); Eosinophils Percent Auto 0.6 % (2-4); Hematocrit 45.4 % (41-53); Hemoglobin 15.5 g/dL (13.5-17.5); Lymphocytes Absolute Auto 600 /uL (1100-4500); Mean Corpuscular HGB Conc 34.2 % (30-36); Mean Corpuscular Hemoglobin 30.1 PG (26-34); Mean Corpuscular Volume 87.9 fL (80-100); Monocytes Absolute Auto 500 /uL (0-900); Monocytes Percent Auto 7.5 % (3-14); Neutrophils Absolute Auto 6000 /uL (1500-7000); Neutrophils Percent Auto 83.8 % (50-75); Platelet Count 184 X10^3/uL (150-400); Red Blood Cell Count 5.16 X10^6/uL (4.5-5.9); Red Cell Distribution Width 13.6 % (11.6-14.8); White Blood Cell Count 7.2 X10^3/uL (4.5-11.0)
[2021-10-31 07:10] LABS: INR 1.1 (0.9-1.3); Prothrombin Time 12.2 SECONDS (10.1-12.7)
[2021-10-31 07:24] LABS: Acetaminophen < 10 ug/mL (10-30); Alanine Aminotransferase 310 IU/L (<50); Albumin 4.7 g/dL (3.5-5.0); Albumin Globulin Ratio 1.4 (1.0-2.8); Alkaline Phosphatase 185 U/L (38-126); Aspartate Aminotransferase 147 IU/L (17-59); BUN Creatinine Ratio 13.1 (6-22); Bilirubin Total 7.5 mg/dL (0.2-1.3); Blood Urea Nitrogen 11 mg/dL (9-20); Calcium 9.6 mg/dL (8.4-10.2); Carbon Dioxide 28 mmol/L (22-32); Chloride 102 mmol/L (98-107); Estimated Glomerular Filt Rate > 60.0 mL/min (>60); Ethanol (ETOH) < 10 mg/dL; Globulin 3.4 g/dL (1.7-4.1); Glucose 118 mg/dL (70-100); HEMOLYSIS 35 (0-50); Potassium 3.9 mmol/L (3.4-5.1); Sodium 139 mmol/L (137-145); Total Protein 8.1 g/dL (6.3-8.2)
[2021-10-31 07:34] LABS: PTT Partial Thromboplastin Tim 38 SECONDS (26.4-36.2)
--- NOTE | 2021-10-31 07:49 | DI.US.S_ITS ---
PROCEDURE: US ABDOMEN LIMITED INDICATIONS: ETOH; ELEVATED BILIRUBIN TECHNIQUE: Real-time scanning was performed of the abdominal and retroperitoneal organs, with image documentation. COMPARISON: [facility], , US ABDOMEN LIMITED, 10/28/2021, 9:52. FINDINGS: Liver: Liver is normal in size and homogeneous in echotexture. The portal vein appears patent Gallbladder: Small amount of sludge in the dependent gallbladder. No gallbladder wall thickening or pericholecystic fluid. Biliary ducts: Intrahepatic bile ducts are non-dilated. Extrahepatic bile duct caliber measures measures up to 8.8 mm. Normal is 6-7 mm or less in diameter, or 10 mm or less post-cholecystectomy. Pancreas: Visualized portions of the pancreas are sonographically normal. Miscellaneous: No free abdominal fluid. IMPRESSION: 1. Sludge within the gallbladder. 2. Dilatation of the CBD. Dictated by: Jori Odom M.D. on 10/31/2021 at 8:36 Approved by: Jori Odom M.D. on 10/31/2021 at 8:38
[2021-10-31 08:03] LABS: Lipase 22957 U/L (23-300)
[2021-10-31] MEDS: KETOROLAC 30 MG/ML VIAL 15 MG IV (08:23)
--- NOTE | 2021-10-31 08:46 | DI.MRI.S_ITS ---
PROCEDURE: MR ABDOMEN WO CON INDICATIONS: dilation of CBD, pancreatitis TECHNIQUE: Coronal HASTE through the abdomen, axial 2-D FLASH in- and [id number], and breath-hold T2 FSE with fat saturation through the biliary system and pancreas. Oblique coronal and axial thin-slice HASTE, radial thick-slab HASTE centered on the extrahepatic bile ducts. COMPARISON: [facility], , US ABDOMEN LIMITED, 10/31/2021, 7:56. FINDINGS: Image quality: There is mild motion artifact. Pancreas and biliary system: The gallbladder is distended but demonstrates no discrete gallstones, wall thickening, or pericholecystic fluid. There is intra and extrahepatic biliary ductal dilatation. The common bile duct measures up to approximately 1.0 cm. No discrete filling defects are identified within the common duct to suggest choledocholithiasis. No definite obstructing mass identified at the ampulla or in the pancreatic head in the absence of intravenous contrast. The pancreatic duct is nondistended. There is mild peripancreatic edema and fluid predominantly along the pancreatic head consistent with acute pancreatitis. No loculated peripancreatic fluid collections. Other solid organs: Noncontrast evaluation of the liver demonstrates no discrete mass lesion. Spleen is normal in size. No adrenal nodules. Both kidneys are normal in size, without hydronephrosis. Nodes and vessels: No retroperitoneal or mesenteric adenopathy by size criteria. Aorta and inferior vena cava are normal in size. Bowel and peritoneum: Visualized bowel loops are normal in caliber. No free fluid. Lung bases: No basal pleural effusions. Heart size is normal. Bones and soft tissues: No ventral hernias. Bone marrow is of normal overall signal. IMPRESSION: 1. Mild biliary ductal dilatation without evidence of choledocholithiasis or discrete obstructing mass in the absence of intravenous contrast. The findings are nonspecific and the differential includes a recently passed stone, ampullary stenosis, or a nonvisualized small obstructing mass lesion. Recommend correlation clinically and if there is persistent clinical suspicion for obstruction, a follow-up study with intravenous contrast may be performed for further evaluation. 2. Peripancreatic edema and fluid consistent with acute pancreatitis. No loculated peripancreatic fluid collections. No pancreatic duct dilatation. Dictated by: Oseas Martin M.D. on 10/31/2021 at 11:47 Approved by: Oseas Martin M.D. on 10/31/2021 at 11:54
[2021-10-31] MEDS: SODIUM CHLORIDE 0.9% 1,000 ML 1000 ML IV (09:25)
[2021-10-31 09:53] LABS: COVID19 -Nasal RAPID Negative (Negative)
[2021-10-31] MEDS: MORPHINE 4 MG/ML INJ IV (10:12)
[2021-10-31 11:41] LABS: Ictotest Urine Positive (Negative); RBC Urine None Seen (0-5/HPF); Squamous Epithelial Cell Urine None Seen (0-5/HPF); WBC Urine 0-1/HPF (0-5/HPF)
[2021-10-31 11:42] LABS: Bacteria Urine None Seen; Culture Indicated Urine Cult Not Indicated; Mucus Urine 1+ (Negative)
--- NOTE | 2021-10-31 13:57 | PM.HP.1 ---
History of Present Illness History of Present Illness Date Patient Seen: 10/31/21 Time Patient Seen: 13:57 Chief complaint: shaking and bad pain Narrative: This is a 21-year-old male with no significant past medical history but binge drinking disorder who presented to the emergency room today with worsening abdominal pain. His abdominal pain initially started 5 days ago, and he came to the emergency room on Wednesday and was discharged home after an unremarkable evaluation after counseling for alcohol cessation. He reports his last alcoholic drink was on Wednesday, or 5 days ago. He does not report any prior seizures or withdrawal symptoms. He states that he primarily binge drinks, but currently endorses drinking 3/4 to F full L of hard alcohol a week when he drinks. The Pain then worsened yesterday prompting him to return to the emergency room today. His pain is primarily in the right upper quadrant region, it feels like a cramping sensation. There is no radiation to the back or any other part of his abdomen. He does feel some fullness in the lower part of his abdomen but no overt pain. He had not had any nausea or vomiting until he tried some clear liquids in the emergency room today. He denies any fevers, chills, chest pain, shortness of breath, vision changes, dysuria, urinary frequency, lower extremity edema. He does note that he 1st noticed his eyes were yellow about a week ago. In the emergency room, the patient's vital signs were unremarkable. Initial laboratory evaluation showed a CBC that was unremarkable, normal coagulation studies, chemistries revealed an elevated bilirubin of 7.5, increased from a couple days ago in the emergency room. His ALT was elevated at 310, AST of 147, both of which were improved since his emergency room visit. Lipase, however was normal in the emergency room a few days ago but was elevated to 23,000 today. Urinalysis did not reveal any evidence of infection. Tylenol and alcohol levels were negative. COVID-19 testing was negative. An acute hepatitis panel was sent and is currently pending. A triglyceride level is ordered for add on. Patient had an additional right upper quadrant ultrasound which showed a dilatation of his CBD without gallstones or evidence of cholecystitis. MRCP also showed dilatation without gallstones or evidence of cholecystitis but did show pancreatic edema consistent with pancreatitis. Patient was admitted for further management of acute pancreatitis. Family history: denies known problems in his mother or father, but not completely sure about this. Patient History Medical History No significant medical problems Surgical History No significant past surgical history Family & Social History Family history unavailable: Yes (patient unaware of any medical history in mother or father, but not certain) Safety & Behavioral: Feels Safe in Current Yes Environment Tobacco & Substance use: alcohol intake frequency 3 or more drinks per day Substance Use Type does not use Meds Home Medications and Allergies Home Medications Medication Instructions Recorded Confirmed Type No Known Home Medications 10/28/21 10/28/21 History Allergies Allergy/AdvReac Type Severity Reaction Status Date / Time No Known Drug Allergies Allergy Verified 10/28/21 09:22 Review of Systems Review of Systems Narrative: All other systems reviewed with the patient and are negative unless otherwise stated. Exam Vital Signs (past 8 hours): - 10/31/21 06:40 10/31/21 08:41 10/31/21 09:00 Temperature 98.7 F Pulse Rate 105 H 86 76 Respiratory Rate 15 22 Blood Pressure 122/76 132/76 119/66 Pulse Oximetry 100 99 99 10/31/21 09:29 10/31/21 09:30 10/31/21 10:00 Temperature Pulse Rate 85 84 91 H Respiratory Rate 22 20 Blood Pressure 120/72 103/54 L Pulse Oximetry 100 99 100 10/31/21 10:50 10/31/21 10:56 10/31/21 11:00 Temperature Pulse Rate 107 H 90 93 H Respiratory Rate Blood Pressure 119/66 123/66 Pulse Oximetry 99 99 98 10/31/21 11:30 10/31/21 12:00 10/31/21 12:30 Temperature Pulse Rate 88 75 71 Respiratory Rate 24 Blood Pressure 116/66 120/64 119/62 Pulse Oximetry 99 99 99 10/31/21 13:00 10/31/21 13:30 Temperature Pulse Rate 83 88 Respiratory Rate 18 18 Blood Pressure 117/66 121/70 Pulse Oximetry 99 99 Oxygen Delivery Method Room Air Narrative Exam Narrative: General:? Patient is well developed and well nourished, in no distress at this time. HEENT:? Normocephalic, atraumatic, extraocular muscles intact, oral pharynx is clear and mucous membranes are moist. Scleral icterus is present. Neck: supple and symmetric, trachea is midline, no cervical adenopathy. Negative for JVD Chest:? Normal AP diameter and contour without kyphoscoliosis, no tachypnea, equal chest rise bilaterally. Lungs:? CTA b/l no wheezing rhonchi or rales. Cardio:?RRR no m/r/g. Abdomen: Soft, mildly tender in the right upper quadrant, nondistended. Mild hepatomegaly. Negative Hernandez sign. Musculoskeletal:? Muscle strength and tone are equal within normal limits, no deformity. Extremities: No edema or joint effusions. No cyanosis or clubbing. Skin:? Pale,? Warm to touch,dry and intact without rashes, ulcerations or petechiae.? Neuro:? Alert and orientated x3,? sensation to touch intact in all extremities, no gross deficits noted of cranial nerves. Psych:? Patient has a well-kept appearance, appropriate affect, mental status attitude thought context and judgment are appropriate for age. Objective Labs Result Diagrams: 10/31/21 06:55 10/31/21 06:55 Labs: Laboratory Results - last 24 hr 10/31/21 10/31/21 10/31/21 06:55 06:55 06:55 WBC 7.2 RBC 5.16 Hgb 15.5 Hct 45.4 MCV 87.9 MCH 30.1 MCHC 34.2 RDW 13.6 Plt Count 184 Neut % (Auto) 83.8 H Lymph % (Auto) 8.0 L [place] % (Auto) 7.5 Eos % (Auto) 0.6 L Baso % (Auto) 0.1 Neut # (Auto) 6000 Lymph # (Auto) 600 L [place] # (Auto) 500 Eos # (Auto) 0 Baso # (Auto) 0 PT 12.2 INR 1.1 APTT Sodium 139 Potassium 3.9 Chloride 102 Carbon Dioxide 28 BUN 11 Creatinine 0.84 Estimated GFR > 60.0 BUN/Creatinine Ratio 13.1 Glucose 118 H Calcium 9.6 Total Bilirubin 7.5 H AST 147 H ALT 310 H Alkaline Phosphatase 185 H Total Protein 8.1 Albumin 4.7 Globulin 3.4 Albumin/Globulin Ratio 1.4 Lipase 90067 H D Ur Bilirubin Confirm Urine RBC Urine WBC Ur Squamous Epith Cells Urine Bacteria Urine Mucus Ur Culture Indicated? Acetaminophen < 10 L Ethyl Alcohol < 10 SARS-CoV-2 (PCR) 10/31/21 10/31/21 10/31/21 06:55 09:00 11:14 WBC RBC Hgb Hct MCV MCH MCHC RDW Plt Count Neut % (Auto) Lymph % (Auto) [place] % (Auto) Eos % (Auto) Baso % (Auto) Neut # (Auto) Lymph # (Auto) [place] # (Auto) Eos # (Auto) Baso # (Auto) PT INR APTT 38 H Sodium Potassium Chloride Carbon Dioxide BUN Creatinine Estimated GFR BUN/Creatinine Ratio Glucose Calcium Total Bilirubin AST ALT Alkaline Phosphatase Total Protein Albumin Globulin Albumin/Globulin Ratio Lipase Ur Bilirubin Confirm Positive H Urine RBC None seen Urine WBC 0-1/hpf Ur Squamous Epith Cells None seen Urine Bacteria None seen Urine Mucus 1+ H Ur Culture Indicated? Cult not indicated Acetaminophen Ethyl Alcohol SARS-CoV-2 (PCR) Negative Assessment & Plan Assessment & Plan narrative: This is a 21-year-old male with no significant past medical history other than binge drinking admitted with acute pancreatitis and an acute hepatitis. 1. Acute pancreatitis, present on admission -MRCP shows no current gallstones, but did show a dilated CBD. This may indicate prior choledocholithiasis, though this is not entirely clear. This may also fit better than alcohol given his AST and ALT elevations as this is not a typical alcoholic ratio. His transaminase levels are currently improving, and often times bilirubin does lag behind. -counseled on alcohol cessation -alcohol is likely contributory, however he is quite young and endorses only a L of hard liquor in a week when he does drink. He may indeed drink more than this, however his AST to ALT elevation is not consistent with an alcoholic hepatitis, though the alcohol may certainly contribute toward pancreatitis. -triglyceride level 102. -he reports no known autoimmune diseases in his family -failed CLD in the ER, continue NPO diet for now with IV fluids. -consider general surgery consultation for possible cholecystectomy. 2. Acute hepatitis, present on admission -as noted above, unclear if his AST, ALT elevation is biliary or alcoholic induced or multifactorial. -continue to follow liver enzymes and bilirubin -f/u acute hepatitis panel Code: Full as discussed with the patient, surrogate decision maker he states is his father I have utilized all available immediate resources to obtain, update, or review the patient's current medications. DVT: not indicated, low risk for VTE and patient ambulatory Time Spent With Patient Critical Care time: I spent a total of [] minutes of critical care time on this patient's care today; this time is exclusive of procedural time. Quality MIPS - Admit I confirm the patient?s Advance Care Plan is present, Code status is documented, Surrogate decision maker is in patient?s record [If Yes, STOP here]: Yes
[2021-10-31 14:47] LABS: Triglycerides 102 mg/dL (35-150)
--- NOTE | 2021-10-31 19:05 | PC.NURSE ---
Pt Arrived from ED at 1704, A&Ox3 ambulates with steady gait, and very pleasant. VSS, afebrile on RA. LS CTA. Reports abdominal pain tolerable at 4/10. Per MD orders CIWA precautions, and NPO, NS at 150ml/hr. CIWA zero. Continuous monitoring
[2021-11-01] VITALS (12 sets, daily range): BP systolic 122–130; BP diastolic 67–76; PULSE 80–102; RESP 16–20; TEMP 36.6–37.3; O2SAT 97–100
[2021-11-01 02:22] LABS: HBsAg Screen Negative (Negative); Hepatitis A Antibody IgM Negative (Negative); Hepatitis B Core Antibody IgM Negative (Negative); Hepatitis C Antibody <0.1 s/co ratio (0.0-0.9)
[2021-11-01] MEDS: HYDROMORPHONE 1 MG INJ IV ×2 (03:09→20:17)
[2021-11-01] MEDS: SODIUM CHLORIDE 0.9% 1,000 ML 150 ML IV ×4 (03:13→20:18)
[2021-11-01 05:14] LABS: Add Manual Diff / Slide Review NO; Basophils Absolute Auto 0 /uL (0-100); Basophils Percent Auto 0.1 % (0-2); Eosinophils Absolute Auto 0 /uL (0-450); Eosinophils Percent Auto 0.7 % (2-4); Hematocrit 40.8 % (41-53); Hemoglobin 14.2 g/dL (13.5-17.5); Lymphocytes Absolute Auto 600 /uL (1100-4500); Mean Corpuscular HGB Conc 34.8 % (30-36); Mean Corpuscular Hemoglobin 30.4 PG (26-34); Mean Corpuscular Volume 87.3 fL (80-100); Monocytes Absolute Auto 500 /uL (0-900); Monocytes Percent Auto 7.9 % (3-14); Neutrophils Absolute Auto 5300 /uL (1500-7000); Neutrophils Percent Auto 81.3 % (50-75); Platelet Count 143 X10^3/uL (150-400); Red Blood Cell Count 4.67 X10^6/uL (4.5-5.9); Red Cell Distribution Width 13.1 % (11.6-14.8); White Blood Cell Count 6.5 X10^3/uL (4.5-11.0)
[2021-11-01 05:21] LABS: Alanine Aminotransferase 227 IU/L (<50); Albumin 3.7 g/dL (3.5-5.0); Albumin Globulin Ratio 1.2 (1.0-2.8); Alkaline Phosphatase 209 U/L (38-126); Aspartate Aminotransferase 94 IU/L (17-59); BUN Creatinine Ratio 14.3 (6-22); Bilirubin Total 8.1 mg/dL (0.2-1.3); Blood Urea Nitrogen 10 mg/dL (9-20); C-Reactive Protein Quant 2.4 mg/dL (<1.0); Calcium 8.8 mg/dL (8.4-10.2); Carbon Dioxide 27 mmol/L (22-32); Chloride 106 mmol/L (98-107); Estimated Glomerular Filt Rate > 60.0 mL/min (>60); Gamma Glutamyl Transpeptidase 285 U/L (15-73); Glucose 86 mg/dL (70-100); HEMOLYSIS < 15 (0-50); Magnesium 1.9 mg/dL (1.6-2.3); Potassium 4.1 mmol/L (3.4-5.1); Sodium 138 mmol/L (137-145); Total Protein 6.7 g/dL (6.3-8.2)
[2021-11-01 06:04] LABS: Hemoglobin A1C% w Est Avg Glu 4.7 % (4.0-6.0)
[2021-11-01 06:35] LABS: Erythrocyte Sedimentation Rate 14 MM/HR (0-15)
--- NOTE | 2021-11-01 08:29 | P.PN_ITS ---
Exam Vital Signs (past 8 hours): - 11/01/21 02:12 11/01/21 04:00 11/01/21 07:50 Temperature 98.5 F 98.3 F Pulse Rate 90 102 H Respiratory Rate 18 20 Blood Pressure 129/71 130/75 Pulse Oximetry 99 99 99 Oxygen Delivery Method Room Air Oxygen Flow Rate 0 Objective Labs Result Diagrams: 11/01/21 04:40 11/01/21 04:40 Labs: Laboratory Results - last 24 hr 10/31/21 10/31/21 10/31/21 06:55 06:55 09:00 WBC RBC Hgb Hct MCV MCH MCHC RDW Plt Count Neut % (Auto) Lymph % (Auto) [place] % (Auto) Eos % (Auto) Baso % (Auto) Neut # (Auto) Lymph # (Auto) [place] # (Auto) Eos # (Auto) Baso # (Auto) ESR Sodium Potassium Chloride Carbon Dioxide BUN Creatinine Estimated GFR BUN/Creatinine Ratio Glucose Hemoglobin A1c Calcium Magnesium Total Bilirubin GGT AST ALT Alkaline Phosphatase C-Reactive Protein Total Protein Albumin Globulin Albumin/Globulin Ratio Triglycerides 102 TSH Ur Bilirubin Confirm Urine RBC Urine WBC Ur Squamous Epith Cells Urine Bacteria Urine Mucus Ur Culture Indicated? SARS-CoV-2 (PCR) Negative Hepatitis A IgM Ab Negative Hep Bs Antigen Negative Hep B Core IgM Ab Negative Hepatitis C Antibody <0.1 Hep C Ab Signal/Cutoff Comment 10/31/21 11/01/21 11/01/21 11:14 04:40 04:40 WBC 6.5 RBC 4.67 Hgb 14.2 Hct 40.8 L MCV 87.3 MCH 30.4 MCHC 34.8 RDW 13.1 Plt Count 143 L Neut % (Auto) 81.3 H Lymph % (Auto) 10.0 L [place] % (Auto) 7.9 Eos % (Auto) 0.7 L Baso % (Auto) 0.1 Neut # (Auto) 5300 Lymph # (Auto) 600 L [place] # (Auto) 500 Eos # (Auto) 0 Baso # (Auto) 0 ESR Sodium 138 Potassium 4.1 Chloride 106 Carbon Dioxide 27 BUN 10 Creatinine 0.70 Estimated GFR > 60.0 BUN/Creatinine Ratio 14.3 Glucose 86 Hemoglobin A1c Calcium 8.8 Magnesium 1.9 Total Bilirubin 8.1 H GGT 285 H AST 94 H ALT 227 H Alkaline Phosphatase 209 H C-Reactive Protein 2.4 H Total Protein 6.7 Albumin 3.7 Globulin 3.0 Albumin/Globulin Ratio 1.2 Triglycerides TSH Ur Bilirubin Confirm Positive H Urine RBC None seen Urine WBC 0-1/hpf Ur Squamous Epith Cells None seen Urine Bacteria None seen Urine Mucus 1+ H Ur Culture Indicated? Cult not indicated SARS-CoV-2 (PCR) Hepatitis A IgM Ab Hep Bs Antigen Hep B Core IgM Ab Hepatitis C Antibody Hep C Ab Signal/Cutoff 11/01/21 11/01/21 11/01/21 04:40 04:40 04:40 WBC RBC Hgb Hct MCV MCH MCHC RDW Plt Count Neut % (Auto) Lymph % (Auto) [place] % (Auto) Eos % (Auto) Baso % (Auto) Neut # (Auto) Lymph # (Auto) [place] # (Auto) Eos # (Auto) Baso # (Auto) ESR 14 Sodium Potassium Chloride Carbon Dioxide BUN Creatinine Estimated GFR BUN/Creatinine Ratio Glucose Hemoglobin A1c 4.7 Calcium Magnesium Total Bilirubin GGT AST ALT Alkaline Phosphatase C-Reactive Protein Total Protein Albumin Globulin Albumin/Globulin Ratio Triglycerides TSH 0.60 Ur Bilirubin Confirm Urine RBC Urine WBC Ur Squamous Epith Cells Urine Bacteria Urine Mucus Ur Culture Indicated? SARS-CoV-2 (PCR) Hepatitis A IgM Ab Hep Bs Antigen Hep B Core IgM Ab Hepatitis C Antibody Hep C Ab Signal/Cutoff [facility] Medical History No significant medical problems Surgical History No significant past surgical history Social History household members: family Smoking Status: Former smoker alcohol intake: former Assessment & Plan Assessment & Plan narrative: This is a 21-year-old male with no significant past medical history other than binge drinking admitted with acute pancreatitis and an acute hepatitis. 1. Acute pancreatitis, present on admission -MRCP shows no current gallstones, but did show a dilated CBD.? This may indicate prior choledocholithiasis, though this is not entirely clear.? This may also fit better than alcohol given his AST and ALT elevations as this is not a typical alcoholic ratio.? His transaminase levels are currently improving, and often times bilirubin does lag behind. -counseled on alcohol cessation -alcohol is likely contributory, however he is quite young and endorses only a L of hard liquor in a week when he does drink.? He may indeed drink more than this, however his AST to ALT elevation is not consistent with an alcoholic hepatitis, though the alcohol may certainly contribute toward pancreatitis. -triglyceride level 102. -he reports no known autoimmune diseases in his family -failed CLD in the ER, continue NPO diet for now with IV fluids. -consider general surgery consultation for possible cholecystectomy. 2. Acute hepatitis, present on admission -as noted above, unclear if his AST, ALT elevation is biliary or alcoholic induced or multifactorial. -continue to follow liver enzymes and bilirubin -f/u acute hepatitis panel Code: Full as discussed with the patient, surrogate decision maker he states is his father I have utilized all available immediate resources to obtain, update, or review the patient's current medications. DVT: not indicated, low risk for VTE and patient ambulatory Time Spent With Patient Critical Care time: I spent a total of [] minutes of critical care time on this patient's care today; this time is exclusive of procedural time.
--- NOTE | 2021-11-01 11:04 | PM.PN.1 ---
Subjective Subjective Date Patient Seen: 11/01/21 Time Patient Seen: 09:50 Interval history: CC: stomach pain Now 24 hours NPO with aggressive IVF and feeling tentatively better. Stomach pain now present on deep palpation. No big appetite but could think about something to nibble on. Exam Vital Signs (past 8 hours): - 11/01/21 04:00 11/01/21 07:50 11/01/21 08:40 Temperature 98.5 F 98.3 F Pulse Rate 90 102 H Respiratory Rate 18 20 Blood Pressure 129/71 130/75 Pulse Oximetry 99 99 99 Oxygen Delivery Method Room Air Oxygen Flow Rate 0 Narrative Exam Narrative: laying in bed watching tv Const General: cooperative, healthy appearing and comfortable HENMT Head: normocephalic and atraumatic Eyes Other: icteric sclerae Resp Other: clear to auscultation bilaterally normal effort Cardio Other: RRR S1/S2 GI Other: soft normal bowel sounds moderately tender to deep epigastric palpation mildly tender in RUQ and LUQ nontender in RLQ and LLQ Skin Other: mildly icteric no lesions or rashes Neuro General: patient alert, patient awake, patient oriented x3, moves all extremities and CN's II-XI intact bilaterally Extrem General: normal to inspection and full ROM Psych Appearance: grossly normal and well kempt Mental Status: mental status grossly normal Speech and Movement: speech and movement normal Objective Labs Result Diagrams: 11/01/21 04:40 11/01/21 04:40 Labs: Laboratory Results - last 24 hr 10/31/21 10/31/21 10/31/21 06:55 06:55 11:14 WBC RBC Hgb Hct MCV MCH MCHC RDW Plt Count Neut % (Auto) Lymph % (Auto) [place] % (Auto) Eos % (Auto) Baso % (Auto) Neut # (Auto) Lymph # (Auto) [place] # (Auto) Eos # (Auto) Baso # (Auto) ESR Sodium Potassium Chloride Carbon Dioxide BUN Creatinine Estimated GFR BUN/Creatinine Ratio Glucose Hemoglobin A1c Calcium Magnesium Total Bilirubin GGT AST ALT Alkaline Phosphatase C-Reactive Protein Total Protein Albumin Globulin Albumin/Globulin Ratio Triglycerides 102 TSH Ur Bilirubin Confirm Positive H Urine RBC None seen Urine WBC 0-1/hpf Ur Squamous Epith Cells None seen Urine Bacteria None seen Urine Mucus 1+ H Ur Culture Indicated? Cult not indicated Hepatitis A IgM Ab Negative Hep Bs Antigen Negative Hep B Core IgM Ab Negative Hepatitis C Antibody <0.1 Hep C Ab Signal/Cutoff Comment 11/01/21 11/01/21 11/01/21 04:40 04:40 04:40 WBC 6.5 RBC 4.67 Hgb 14.2 Hct 40.8 L MCV 87.3 MCH 30.4 MCHC 34.8 RDW 13.1 Plt Count 143 L Neut % (Auto) 81.3 H Lymph % (Auto) 10.0 L [place] % (Auto) 7.9 Eos % (Auto) 0.7 L Baso % (Auto) 0.1 Neut # (Auto) 5300 Lymph # (Auto) 600 L [place] # (Auto) 500 Eos # (Auto) 0 Baso # (Auto) 0 ESR Sodium 138 Potassium 4.1 Chloride 106 Carbon Dioxide 27 BUN 10 Creatinine 0.70 Estimated GFR > 60.0 BUN/Creatinine Ratio 14.3 Glucose 86 Hemoglobin A1c 4.7 Calcium 8.8 Magnesium 1.9 Total Bilirubin 8.1 H GGT 285 H AST 94 H ALT 227 H Alkaline Phosphatase 209 H C-Reactive Protein 2.4 H Total Protein 6.7 Albumin 3.7 Globulin 3.0 Albumin/Globulin Ratio 1.2 Triglycerides TSH Ur Bilirubin Confirm Urine RBC Urine WBC Ur Squamous Epith Cells Urine Bacteria Urine Mucus Ur Culture Indicated? Hepatitis A IgM Ab Hep Bs Antigen Hep B Core IgM Ab Hepatitis C Antibody Hep C Ab Signal/Cutoff 11/01/21 11/01/21 04:40 04:40 WBC RBC Hgb Hct MCV MCH MCHC RDW Plt Count Neut % (Auto) Lymph % (Auto) [place] % (Auto) Eos % (Auto) Baso % (Auto) Neut # (Auto) Lymph # (Auto) [place] # (Auto) Eos # (Auto) Baso # (Auto) ESR 14 Sodium Potassium Chloride Carbon Dioxide BUN Creatinine Estimated GFR BUN/Creatinine Ratio Glucose Hemoglobin A1c Calcium Magnesium Total Bilirubin GGT AST ALT Alkaline Phosphatase C-Reactive Protein Total Protein Albumin Globulin Albumin/Globulin Ratio Triglycerides TSH 0.60 Ur Bilirubin Confirm Urine RBC Urine WBC Ur Squamous Epith Cells Urine Bacteria Urine Mucus Ur Culture Indicated? Hepatitis A IgM Ab Hep Bs Antigen Hep B Core IgM Ab Hepatitis C Antibody Hep C Ab Signal/Cutoff [facility] Medical History No significant medical problems Surgical History No significant past surgical history Social History household members: family Smoking Status: Former smoker alcohol intake: former Assessment & Plan Assessment & Plan narrative: This is a 21-year-old male with no significant past medical history other than binge drinking admitted with acute pancreatitis and acute hepatitis. #Acute pancreatitis, present on admission MRCP showed no current gallstones, but did show a dilated CBD.?May represent a stone that has already passed vs alcohol? His transaminase levels are currently improving, and often times bilirubin does lag behind. Counseled on alcohol cessation he agrees his current alcohol intake strategy may not be ideal. Not a daily drinker but goes hard on the weekends with a handle of liquor per report. He may indeed drink more than this, however his AST to ALT elevation is not consistent with an alcoholic hepatitis, though the alcohol may certainly contribute toward pancreatitis. Nomal TAGs, reports no known autoimmune diseases in his family Now s/p 24 hours NPO, ok to resume sips of water, advance to some jello as tolerated continue IVF Consider general surgery consultation for possible cholecystectomy. #Acute hepatitis, present on admission Jaundice is notable, as noted above, unclear if his AST, ALT elevation is biliary or alcoholic induced or multifactorial. Continue to follow liver enzymes and bilirubin, acute hepatitis panel negative #Alcohol abuse, intermittent counseled on cessation, CIWAS score fine Code: Full as discussed with the patient, surrogate decision maker he states is his father DVT: not indicated, low risk for VTE and patient ambulatory, encouraged to get up to chair dispo: poissible home tomorrow if back on regular diet and numbers still trending down Time Spent With Patient Critical Care time: I spent a total of [] minutes of critical care time on this patient's care today; this time is exclusive of procedural time.
--- NOTE | 2021-11-01 11:25 | PC.NURSE ---
Addendum entered by Kalyani Taylor R.N. 11/01/21 14:38: no s/s of worsening abd pain. pt in bed watching tv. Original Note: pt can have sips and chips and tolerating it.
--- NOTE | 2021-11-01 16:31 | CM.DANOTE ---
Discharge Assessment Note: Patient is 21yo Male admitted for ETOH withdrawal, acute pancreatitis, hepatitis. Patient is assigned to hospitalist team. Patient tolerating withdrawal management well and CIWA scores being monitored. Patient reported 3 or more drinks daily but binge drinking, consuming more than 3/5 L of hard alcohol a week when he drinks. Patient declining resources or referrals to detox or outpatient assessment/treatment for THOMPSON reporting he doesn't feel he needs the assistance at this time. Patient resides in family home with his parents locally. Patient is fully independent, no adaptive devices or ongoing medical concerns. Patient does not have an established PCP but indicates he plans to take care of this soon. PCP: none INS: [place] Plan: patient anticipated to discharge home with family providing transportation via POV. [facility] will continue to follow patient throughout clinical course of admission for discharge planning needs as they arise. Jesús KRUEGER Discharge Planning/Care Management CM Discharge Assessment Start: 11/01/21 16:19 Freq: Status: Active Protocol: Document 11/01/21 16:19 YOKO (Rec: 11/01/21 16:31 [id number]) Discharge Planning Assessment Assigned Internet Marketing Assistant Jesús KRUEGER DPOA/Assigned Designee Name Father per pt Contact Information not shared Advance Directives? No Advance Directives on File No History Provided By Patient Has Patient been admitted in last 30 No days? Prior Living Arrangements House Household Members family Type of transporation used prior to Drives own vehicle admit Independent with ADL's Yes Is patient alert and oriented? Yes Caregiver for Another No Comment none needed Patient/Family Preference Drug/Alcohol Rehab Comment pt refusing resources or referrals Barriers to Discharge No Discharge Plan Home Transportation Arrangement family Referrals Initiated None needed Whiteboard Updated in Patient Room with Yes name and ext. # of Internet Marketing Assistant Review Status In Process Next Review Type Continued Stay Review
[2021-11-02] MEDS: SODIUM CHLORIDE 0.9% 1,000 ML 150 ML IV (03:45)
[2021-11-02 03:51] VITALS: BP 123/67; PULSE 91; RESP 19; TEMP 36.6; O2SAT 98
[2021-11-02 04:00] VITALS: O2SAT 98
[2021-11-02 05:10] LABS: Add Manual Diff / Slide Review NO; Basophils Absolute Auto 0 /uL (0-100); Basophils Percent Auto 0.2 % (0-2); Eosinophils Absolute Auto 100 /uL (0-450); Eosinophils Percent Auto 1.1 % (2-4); Hematocrit 40.1 % (41-53); Hemoglobin 13.7 g/dL (13.5-17.5); Lymphocytes Absolute Auto 700 /uL (1100-4500); Lymphocytes Percent Auto 11.2 % (25-40); Mean Corpuscular HGB Conc 34.2 % (30-36); Mean Corpuscular Hemoglobin 30.1 PG (26-34); Monocytes Absolute Auto 600 /uL (0-900); Monocytes Percent Auto 8.9 % (3-14); Neutrophils Absolute Auto 4900 /uL (1500-7000); Neutrophils Percent Auto 78.6 % (50-75); Platelet Count 154 X10^3/uL (150-400); Red Blood Cell Count 4.56 X10^6/uL (4.5-5.9); Red Cell Distribution Width 13.4 % (11.6-14.8); White Blood Cell Count 6.2 X10^3/uL (4.5-11.0)
[2021-11-02 06:59] VITALS: O2SAT 90
[2021-11-02 08:00] VITALS: PULSE 91; RESP 16; TEMP 37; O2SAT 98
[2021-11-02 08:13] LABS: Alanine Aminotransferase 199 IU/L (<50); Albumin 3.6 g/dL (3.5-5.0); Albumin Globulin Ratio 1.2 (1.0-2.8); Alkaline Phosphatase 284 U/L (38-126); Aspartate Aminotransferase 106 IU/L (17-59); Bilirubin Total 8.8 mg/dL (0.2-1.3); Blood Urea Nitrogen 7 mg/dL (9-20); Calcium 8.8 mg/dL (8.4-10.2); Carbon Dioxide 29 mmol/L (22-32); Chloride 102 mmol/L (98-107); Estimated Glomerular Filt Rate > 60.0 mL/min (>60); Glucose 96 mg/dL (70-100); HEMOLYSIS < 15 (0-50); Magnesium 1.9 mg/dL (1.6-2.3); Sodium 135 mmol/L (137-145); Total Protein 6.6 g/dL (6.3-8.2)
[2021-11-02 08:32] LABS: Lipase 3307 U/L (23-300)
--- NOTE | 2021-11-02 08:58 | P.DS_ITS ---
History of Present Illness History of Present Illness Chief complaint: shaking and bad pain Narrative: Per Dr. Raymond: This is a 21-year-old male with no significant past medical history but binge drinking disorder who presented to the emergency room today with worsening abdominal pain.? His abdominal pain initially started 5 days ago, and he came to the emergency room on Wednesday and was discharged home after an unremarkable evaluation after counseling for alcohol cessation.? He reports his last alcoholic drink was on Wednesday, or 5 days ago.? He does not report any prior seizures or withdrawal symptoms.? He states that he primarily binge drinks, but currently endorses drinking 3/4 to F full L of hard alcohol a week when he drinks.? The Pain then worsened yesterday prompting him to return to the emergen cy room today.? His pain is primarily in the right upper quadrant region, it feels like a cramping sensation.? There is no radiation to the back or any other part of his abdomen.? He does feel some fullness in the lower part of his abdomen but no overt pain.? He had not had any nausea or vomiting until he tried some clear liquids in the emergency room today.? He denies any fevers, chills, chest pain, shortness of breath, vision changes, dysuria, urinary frequency, lower extremity edema.? He does note that he 1st noticed his eyes were yellow about a week ago. In the emergency room, the patient's vital signs were unremarkable.? Initial laboratory evaluation showed a CBC that was unremarkable, normal coagulation studies, chemistries revealed an elevated bilirubin of 7.5, increased from a cou ple days ago in the emergency room.? His ALT was elevated at 310, AST of 147, both of which were improved since his emergency room visit.? Lipase, however was normal in the emergency room a few days ago but was elevated to 23,000 today.? Urinalysis did not reveal any evidence of infection.? Tylenol and alcohol levels were negative.? COVID-19 testing was negative.? An acute hepatitis panel was sent and is currently pending.? A triglyceride level is ordered for add on.? Patient had an additional right upper quadrant ultrasound which showed a dilatation of his CBD without gallstones or evidence of cholecystitis.? MRCP also showed dilatation without gallstones or evidence of cholecystitis but did show pancreatic edema consistent with pancreatitis.? Patient was admitted for further management of acute pancreatitis. Discharge Providers Provider Date of admission: 10/31/21 12:23 Discharge Date: 11/02/21 Discharge provider: Margarito Acosta MD Summary Hospital Course Discharge Diagnosis: 1. Acute pancreatitis 2. Alcoholic hepatitis 3. Alcohol abuse Hospital Course: Mr. Gandhi was admitted with jaundice, pancreatitis after recent significant alcohol use. He had imaging done which showed no evidence of stone. He was initially NPO and on IV fluids but symptomatically improved. His hepatitis serologies were negative. He was discharged and recommended to avoid alcohol. He declined resources to help quit drinking. He is recommended closely to follow with a PCP within one week. Discharge time 33 minutes Exam Vital Signs (past 8 hours): Fraction of Inspired Oxygen 0 Oxygen Delivery Method Room Air Oxygen Flow Rate 0 Narrative Exam Narrative: GEN: no acute distress ABD: soft, nontender, nondistended Objective Labs Result Diagrams: 11/02/21 04:46 11/02/21 04:46 [facility] Medical History No significant medical problems Surgical History No significant past surgical history Social History household members: family Smoking Status: Former smoker alcohol intake: former Discharge Plan Discharge Plan Patient Disposition: Home Provider Discharge Comment: Mr. Gandhi was admitted to the hospital with liver injury and pancreatitis. This is likely due to alcohol use. Please stop drinking alcohol. Please be careful with eating foods that are very fatty for a few days as that can cause some pancreas irritation as it is healing. Discharge orders & Medications Prescriptions: No Action No Known Home Medications 0RF Diet/Activity/Treatments Diet: Regular and Low-fat Visit Report/Discharge Packet Instructions: DI for Pancreatitis, DI for Alcohol Use Disorder
[2021-11-02 10:00] VITALS: O2SAT 98
== END 2021-11-02 13:38 | disposition home or self-care (01) | DRG 440 ==
LOC: ED 08:31 → AC 12:24
PROVIDERS: Emergency Medicine; Family Medicine; Admitting Provider Internal Medicine; Emergency Provider Emergency Medicine; Referring Provider Emergency Medicine; Visit Provider Internal Medicine
DX: K85.90 Acute pancreatitis without necrosis or infection, unspecified (principal); K70.10 Alcoholic hepatitis without ascites; F10.10 Alcohol abuse, uncomplicated; Y90.0 Blood alcohol level of less than 20 mg/100 ml; Z87.891 Personal history of nicotine dependence; Z20.822 Contact with and (suspected) exposure to COVID-19
CPT/HCPCS: 36415; 74181; 76705; 80053; 80074; 80320; 80329; 81003; 81015; 82977; 83036; 83690; 83735; 84443; 84478; 85025; 85610; 85651; 85730; 86140; 87086; 87635; 94760; 96361; 96374; 96375; 99284; C9803; G0480; J1170; J1885; J2270